=== PATIENT | male | born 1950 | race Caucasian/White ===

== ENCOUNTER 2022-06-11 13:36 | Emergency (ER) | payer OTHER, SELFPAY ==
[2022-06-11 13:52] VITALS: BP 129/91; PULSE 78; RESP 22; TEMP 37; O2SAT 100; BMI 27.1
[2022-06-11 14:44] LABS: Basophils Percent Auto 0.2 % (0.0-3.0); Eosinophils Percent Auto 0.5 % (0.0-7.0); Hematocrit 43.7 % (37.0-53.0); Hemoglobin* 13.6 gm/dL (13.5-17.5); Immature Granulocytes Pct Auto 0.3 %; Lymphocytes Percent Auto 9.5 % (20-44); Mean Corpuscular HGB Conc 31 gm/dL (32-36); Mean Corpuscular Hemoglobin 28 pg (26-34); Mean Corpuscular Volume 89 fL (80-100); Monocytes Percent Auto 7.3 % (0.0-11.0); Neutrophils Percent Auto 82.2 % (42.0-72.0); Platelet Count* 271 K/uL (140-440); RDW Coefficient of Variation % 15.7 % (11.5-15.5); Red Blood Count 4.93 m/uL (4.30-5.90); White Blood Count* 12.47 K/uL (4.50-11.00)
--- NOTE | 2022-06-11 14:55 | ED_ITS ---
HPI - General Adult General Date Seen: 06/11/22 Chief complaint: Lower Extremity Swelling Stated complaint: Ulcer Time Seen by Provider: 06/11/22 13:49 Source: patient Mode of arrival: ambulatory Limitations: no limitations History of Present Illness HPI narrative: Patient is a 72-year-old male who presents for evaluation of an ulcer on his right leg which he says developed about a week ago. He notes that last night there was some associated pain. He has another ulcer higher up on his leg which he says he thinks developed a couple of weeks ago at his [id number] . He denies a history of diabetes. He says he has never had these looked at before. He says he saw his primary doctor at the beginning of May for some fungal changes on his foot. He maintains that these ulcers were not there at this time. He has swelling in his legs and notes that this is chronic, and says that is unchanged. He denies any systemic symptoms such as fevers or chills. He denies any previous known vasculopathy. He says he has normal sensation in his feet. He used to smoke but quit many years ago. He is on oxygen at home, 6 L. He lives alone. Denies significant alcohol use. Related Data Home Medications Medication Instructions Recorded Confirmed azithromycin 250 mg tablet 250 mg PO DAILY 06/11/22 06/11/22 fluticasone fur. 100 mcg-umeclid 1 inh inhalation DAILY 06/11/22 06/11/22 62.5 mcg-vilant 25 mcg inhalat.powder (Trelegy Ellipta) furosemide 20 mg tablet (Lasix) 20 mg PO DAILY 06/11/22 06/11/22 metolazone 2.5 mg tablet 2.5 mg PO DAILY 06/11/22 06/11/22 omeprazole 40 mg capsule,delayed 40 mg PO DAILY 06/11/22 06/11/22 release prednisolone 5 mg tablet 10 mg PO DAILY 06/11/22 06/11/22 roflumilast 250 mcg tablet 250 mcg PO DAILY 06/11/22 06/11/22 (Daliresp) simvastatin 40 mg tablet 40 mg PO DAILY 06/11/22 06/11/22 Previous Rx's Medication Instructions Recorded cephalexin 500 mg capsule 500 mg PO QID #28 caps 06/11/22 potassium chloride 20 mEq 20 meq PO DAILY #10 tabs 06/11/22 tablet,extended release Allergies Allergy/AdvReac Type Severity Reaction Status Date / Time shellfish Allergy Intermediate Hives Uncoded 06/11/22 13:52 Review of Systems Status of ROS: Reports: 10 or more systems reviewed and unremarkable except as noted in History and below Exam Narrative: Exam Narrative: Vital signs reviewed In general, an alert, nontoxic male, on oxygen. Heart: Regular rate and rhythm. Lungs: Clear. Abdomen: Protuberant, soft. Extremities: Pitting edema noted in bilateral lower extremities. Venous stasis changes bilaterally. On the right, he has two well-demarcated ulcerations. The 1st is just distal to the knee and is irregularly shaped, brownish in color and dry without any drainage. The other is on the anterior huggins, more distal in the mid lower leg. This 1 has more purulent drainage noted as well as some darker erythema surrounding. There is no fluctuance, the area surrounding the ulcer is nontender without significant warmth. I am not able to palpate pulses in either foot and capillary refill is 3 seconds in bilateral feet and ankles. Both feet are somewhat cool, he notes normal sensation bilaterally. Skin: Warm and dry in the upper body. On lower extremities, somewhat cool and dusky distally, symmetrically. Const: Vital Signs, click to edit/add: Vital Signs - 24 hr 06/11/22 13:52 06/11/22 14:25 Temperature 98.6 F Pulse Rate [Pulse Oximeter] 78 Respiratory Rate 22 Blood Pressure [Ri ght Forearm] 129/91 H Pulse Oximetry 100 Oxygen Delivery Me thod Nasal Cannula Nasal Cannula Oxygen Flow Rate 5 5 Documenting provider has reviewed patient's vital signs: yes Course Course Hospital Course: Him assessing his lower extremities, it would appear to me that there is probably some chronic vascular deficiency, though I do not see evidence of acute vascular compromise. I did send a wound culture, based on the appearance of the more distal wound today, I think it is probably reasonable to cover that with antibiotics. I do think he wound clinic, and may well need a vascular workup but I think this can be done as an outpatient. Labs today show white blood cell count of 12.47, mildly elevated CRP of 6.6, and potassium 3.1. I am going to put him on a little supplementation as he is on Lasix. He should recheck this with his primary care doctor. I am starting him on Keflex, I have put in a wound care clinic consult for him. If he has worsening symptoms, return to the emergency department. Vital Signs Vital signs: Initial Vital Signs Temperature 98.6 F 06/11/22 13:52 Temperature Source Temporal Artery Scan 06/11/22 13:52 Pulse Rate 78 06/11/22 13:52 Respiratory Rate 22 06/11/22 13:52 Blood Pressure 129/91 H 06/11/22 13:52 Blood Pressure Mean 103 06/11/22 13:52 Pulse Oximetry 100 06/11/22 13:52 Oxygen Delivery Method 06/11/22 13:52 Oxygen Flow Rate 5 06/11/22 13:52 Vital Signs Temperature 98.6 F 06/11/22 13:52 Pulse Rate 78 06/11/22 13:52 Respiratory Rate 22 06/11/22 13:52 Blood Pressure 129/91 H 06/11/22 13:52 Pulse Oximetry 100 06/11/22 13:52 Oxygen Delivery Method 06/11/22 13:52 Oxygen Flow Rate 5 06/11/22 13:52 Temperature 98.6 F 06/11/22 13:52 Pulse Rate 78 06/11/22 13:52 Respiratory Rate 22 06/11/22 13:52 Blood Pressure 129/91 H 06/11/22 13:52 Pulse Oximetry 100 06/11/22 13:52 Oxygen Delivery Method 06/11/22 14:25 Oxygen Flow Rate 5 06/11/22 14:25 Medical Decision Making Lab Data Labs: Lab Results 06/11/22 06/11/22 Range/Units 14:30 14:30 WBC 12.47 H (4.50-11.00) K/uL RBC 4.93 (4.30-5.90) m/uL Hgb 13.6 (13.5-17.5) gm/dL Hct 43.7 (37.0-53.0) % MCV 89 (80-100) fL MCH 28 (26-34) pg MCHC 31 L (32-36) gm/dL RDW Coeff of Sandra 15.7 H (11.5-15.5) % Plt Count 271 (140-440) K/uL Neut % (Auto) 82.2 H (42.0-72.0) % Lymph % (Auto) 9.5 L (20-44) % [place] % (Auto) 7.3 (0.0-11.0) % Eos % (Auto) 0.5 (0.0-7.0) % Baso % (Auto) 0.2 (0.0-3.0) % Neut # (Auto) 10.30 H (1.7-7.0) K/uL Lymph # (Auto) 1.20 (0.90-2.90) K/uL [place] # (Auto) 0.90 (0.00-0.90) K/UL Eos # (Auto) 0.10 (0.00-0.50) K/uL Baso # (Auto) 0.00 (0.00-0.30) K/uL Sodium 137 (135-149) mmol/L Potassium 3.1 L (3.6-5.1) mmol/L Chloride 92 L (96-114) mmol/L Carbon Dioxide 40 H (20-32) mmol/L BUN 19 (7-30) mg/dL Creatinine 0.9 (0.5-1.5) mg/dL Estimated Creat Clear 56.38 Estimated GFR 90 ml/min Glucose 86 (60-115) mg/dL Calcium 9.6 (8.4-10.6) mg/dL C-Reactive Protein 6.6 H (0.5-1.0) mg/dL Discharge Plan Discharge Clinical Impression: Chronic ulcer of right leg, Cellulitis, Acute hypokalemia Patient Disposition: Home, Self-Care Condition: Stable Instructions: Chronic Wounds (ED) Additional Instructions: Antibiotic as prescribed. Dry dressing changes daily. Return for worsening redness, swelling, pain or new symptoms such as fever. Wound clinic follow-up for assistance with healing. Potassium supplement, recheck with primary care in 1 week. Activity Level: No Restrictions Discharge Diet: Regular Prescriptions: New cephalexin 500 mg capsule 500 mg PO QID Qty: 28 0RF potassium chloride 20 mEq tablet extended release 20 meq PO DAILY Qty: 10 2RF No Action furosemide [Lasix] 20 mg tablet 20 mg PO DAILY metolazone 2.5 mg tablet 2.5 mg PO DAILY prednisolone 5 mg tablet 10 mg PO DAILY omeprazole 40 mg capsule,delayed release(DR/EC) 40 mg PO DAILY azithromycin 250 mg tablet 250 mg PO DAILY Rx Instructions: start on day 2 of therapy simvastatin 40 mg tablet 40 mg PO DAILY roflumilast [Daliresp] 250 mcg tablet 250 mcg PO DAILY Trelegy Ellipta 100-62.5-25 mcg blister with device 1 inh inhalation DAILY Follow Up/Referrals: Ashish Coleman MD [Primary Care Provider] - Stand Alone Forms: [employer] Info Instructions
[2022-06-11 14:57] LABS: Slide Review Reflex No
[2022-06-11 15:05] LABS: Chloride* 92 mmol/L (96-114)
[2022-06-11 15:06] LABS: Potassium* 3.1 mmol/L (3.6-5.1); Sodium* 137 mmol/L (135-149)
[2022-06-11 15:08] LABS: Creatinine* 0.9 mg/dL (0.5-1.5); Est. Creatinine Clearance* 56.38; Estimated Glomerular Filt Rate 90 ml/min
[2022-06-11 15:09] LABS: Blood Urea Nitrogen* 19 mg/dL (7-30); Carbon Dioxide* 40 mmol/L (20-32); Glucose* 86 mg/dL (60-115)
[2022-06-11 15:10] LABS: Calcium* 9.6 mg/dL (8.4-10.6)
[2022-06-11 15:12] LABS: C Reactive Protein* 6.6 mg/dL (0.5-1.0)
--- NOTE | 2022-06-11 15:35 | ED.NURSE ---
Reviewed discharge instructions in detail with pat and discussed setting up a primary care appt as well. Pt in agreement with plan of care.
== END 2022-06-11 15:35 | disposition home or self-care (01) ==
PROVIDERS: Emergency Provider Emergency Medicine; PCP Family Medicine
DX: L03.115 Cellulitis of right lower limb (principal); E87.6 Hypokalemia
CPT/HCPCS: 36415; 80048; 85025; 86140; 87070; 87186; 99283; 99284